=== PATIENT | male | born 1960 | race Caucasian/White ===

== ENCOUNTER 2020-11-03 04:58 | Observation (INO) | payer BC ==
--- NOTE | 2020-11-03 05:21 | ED ---
Chest Pain HPI - General Chief Complaint: Chest Pain Stated Complaint: Chest Pain Time Seen by Provider: 11/03/20 05:02 Source: patient, EMS Mode of arrival: EMS Limitations: no limitations - History of Present Illness Initial Comments: This patient is 60-year-old man who woke from sleep tonight with substernal chest pain. The pain lasted probably about 15 minutes and has resolved. He did take aspirin. The patient has been having episodes like this going back for about a week now. Initially the episodes were exertional in nature. He states now he is having them sometimes at rest. Occasionally there is some nausea accompanying. The pains will last from 5-15 or 20 minutes. He had seen his doctor and he also was then scheduled with cardiology in about 2 weeks from now. MD Complaint: chest pain Onset/Timin -: hour(s) Onset: awoke with symptoms Pain Location: substernal Pain Radiation: none Severity: moderate Quality: sharp Consistency: intermittent Improves With: nothing Worsens With: nothing Anginal Symptoms: nausea Treatments Prior to Arrival: aspirin - Related Data Allergies Allergy/AdvReac Type Severity Reaction Status Date / Time No Known Allergies Allergy Verified 11/03/20 05:07 Review of Systems ROS Statement: Those systems with pertinent positive or pertinent negative responses have been documented in the HPI. ROS Other: All systems not noted in ROS Statement are negative. Constitutional: Denies: fever, chills Respiratory: Denies: cough, dyspnea Cardiovascular: Reports: chest pain. Denies: palpitations, orthopnea, edema, syncope Gastrointestinal: Reports: nausea. Denies: abdominal pain, vomiting, diarrhea, melena, hematochezia Genitourinary: Denies: dysuria, hematuria Musculoskeletal: Denies: back pain Skin: Denies: rash Neurological: Denies: headache, weakness, numbness EKG Findings - EKG Results: EKG: interpreted by MK MEADE, sinus rhythm (Rate 66 bpm), normal axis, normal QRS, normal ST/T, no acute changes Past Medical History Past Medical History: Hypertension History of Any Multi-Drug Resistant Organisms: None Reported Past Psychological History: No Psychological Hx Reported Smoking Status: Never smoker Past Alcohol Use History: Occasional Past Drug Use History: None Reported General Exam Limitations: no limitations General appearance: alert, in no apparent distress Head exam: Present: atraumatic, normocephalic Eye exam: Present: normal appearance. Absent: scleral icterus, conjunctival injection Neck exam: Present: normal inspection Respiratory exam: Present: normal lung sounds bilaterally. Absent: respiratory distress, wheezes, rales, rhonchi, stridor Cardiovascular Exam: Present: regular rate, normal rhythm, normal heart sounds. Absent: systolic murmur, diastolic murmur, rubs, gallop GI/Abdominal exam: Present: soft. Absent: distended, tenderness, guarding, rebound, rigid, mass, pulsatile mass, hernia Extremities exam: Present: normal inspection, normal capillary refill. Absent: pedal edema, calf tenderness Back exam: Present: normal inspection. Absent: CVA tenderness (R), CVA tenderness (L) Neurological exam: Present: alert Skin exam: Present: warm, dry, intact, normal color. Absent: rash Course Vital Signs 11/03/20 11/03/20 11/03/20 05:01 05:08 05:17 Temperature 97.7 F Pulse Rate 62 71 Pulse Rate [ 60 Manufacturing Lead ] Respiratory 16 16 Rate Blood Pressure 142/101 O2 Sat by Pulse 95 97 Oximetry 11/03/20 06:00 Temperature Pulse Rate 58 L Pulse Rate [ Manufacturing Lead ] Respiratory 16 Rate Blood Pressure 127/84 O2 Sat by Pulse 98 Oximetry - Reevaluation(s) Reevaluation #1: 11/03/20 06:46 Case is discussed with Dr. Limon, and they will see the patient when they arrive shortly this am Disposition Clinical Impression: Acute coronary syndrome Disposition: ADMITTED IP TO THIS [facility] Condition: Stable
[2020-11-03 05:39] LABS: Basophils # (A) 0.1 k/uL (0-0.2); Basophils % (A) 1 %; Eosinophils # (A) 0.2 k/uL (0-0.7); Eosinophils % (A) 3 %; HCT 45.4 % (39.0-53.0); HGB 15.6 gm/dL (13.0-17.5); Lymphocytes % (A) 19 %; MCH 31.1 pg (25.0-35.0); MCHC 34.3 g/dL (31.0-37.0); MCV 90.7 fL (80.0-100.0); Mean Platelet Volume 7.2; Monocytes # (A) 0.3 k/uL (0-1.0); Monocytes % (A) 6 %; Neutrophils # (A) 3.5 k/uL (1.3-7.7); Neutrophils % (A) 69 %; Platelet Count 171 k/uL (150-450); RBC 5.01 m/uL (4.30-5.90); RDW 11.9 % (11.5-15.5); WBC 5.1 k/uL (3.8-10.6)
[2020-11-03 05:47] LABS: Partial Thromboplastin Time 24.8 sec (22.0-30.0); Prothrombin Time 10.3 sec (9.0-12.0)
[2020-11-03 05:55] LABS: ALT 31 U/L (4-49); AST 36 U/L (17-59); African American GFR (CKD) >90 (>60 ml/min/1.73 sqM); Albumin 3.8 g/dL (3.5-5.0); Alkaline Phosphatase 57 U/L (38-126); Anion Gap 7 mmol/L; Blood Urea Nitrogen 20 mg/dL (9-20); Calcium 9.1 mg/dL (8.4-10.2); Carbon Dioxide 25 mmol/L (22-30); Chloride 107 mmol/L (98-107); Glucose 93 mg/dL (74-99); Non-African American GFR(CKD) 82 (>60 ml/min/1.73 sqM); Potassium 4.2 mmol/L (3.5-5.1); Sodium 139 mmol/L (137-145); Total Bilirubin 0.5 mg/dL (0.2-1.3); Total Protein 6.4 g/dL (6.3-8.2)
[2020-11-03] MEDS ORDERED: HEPARIN SODIUM 1,000 UN/ML (10ML VL) IV ONE (06:30)
[2020-11-03] MEDS ORDERED: HEPARIN SOD,PORK IN 0.45% NACL 25,000 UNIT in 0.45% NACL 1 250ML.BAG IV SCH (06:30)
[2020-11-03] MEDS ORDERED: MORPHINE SULFATE 4 MG/ML SYRINGE IV PRN (06:30)
[2020-11-03] MEDS ORDERED: NITROGLYCERIN SL TABS 0.4 MG TAB SUBLINGUAL PRN ×3 (06:30→11:46)
[2020-11-03] MEDS ORDERED: NITROGLYCERIN OINT 1 INCH/GM PACKET TOPICAL STA (06:44)
--- NOTE | 2020-11-03 06:47 | XR ---
EXAM: XR Chest, 2 Views CLINICAL HISTORY: ITS.REASON XR Reason: Chest Pain TECHNIQUE: Frontal and lateral views of the chest. COMPARISON: No relevant prior studies available. FINDINGS: Lungs: Unremarkable. No consolidation. Pleural space: Unremarkable. No pneumothorax. Heart: Unremarkable. No cardiomegaly. Mediastinum: Unremarkable. Bones/joints: Unremarkable. IMPRESSION: No acute pulmonary process.
[2020-11-03] MEDS: ASPIRIN 81 MG PO SCH (08:40)
[2020-11-03] MEDS: METOPROLOL TARTRATE 25 MG TAB PO SCH ×2 (08:40→20:38)
[2020-11-03] MEDS ORDERED: ATORVASTATIN 80 MG TAB PO STA (09:32)
[2020-11-03] MEDS ORDERED: ALPRAZolam 0.5 MG TAB PO PRN (09:32)
[2020-11-03] MEDS ORDERED: ASPIRIN 325 MG TAB PO STA (09:32)
[2020-11-03] MEDS ORDERED: SODIUM CHLORIDE 0.9% 1,000 ML in EMPTY BAG 1 BAG IV ONE (09:32)
[2020-11-03] MEDS ORDERED: ALPRAZolam 0.25 MG TAB PO PRN (09:32)
[2020-11-03] MEDS ORDERED: VERAPAMIL 2.5 MG/ML 2 ML AMP ONE (10:12)
[2020-11-03] MEDS ORDERED: LIDOCAINE 1% INJ 10MG/ML (20 ML MDV) ONE (10:12)
[2020-11-03] MEDS ORDERED: IV FLUID CONTINUATION 400 ML IV ONE (10:35)
[2020-11-03] MEDS ORDERED: MIDAZOLAM 2 MG/2 ML VIAL IVP ONE ×2 (10:54→10:59)
--- NOTE | 2020-11-03 10:55 | P.CRDCN ---
History of Present Illness Consult date: 11/03/20 History of present illness: HISTORY OF PRESENT ILLNESS: This is a 60-year-old male with a past medical history significant for hypertension. Patient does not follow with a occupational therapist's assistant. We have been asked to see the patient in consultation for elevated troponins. Patient examined at the bedside. Patient states he has been having intermittent chest pain over the past week or 2. He was evaluated by his primary care physician and had an appointment to [facility] at the end of the month for further evaluation. Patient states over the last couple days he has been having continued chest pain even at rest. He denies any shortness of breath. He reports mild nausea when these episodes of chest pain occur. He denies any radiation of the pain. He states the pain feels like a squeezing sensation and is localized to the middle of his chest. Patient was found to have elevated troponin of 0.2. He was started on IV heparin drip. At the time of examination, the patient denies any chest pain or pressure. EKG reveals sinus mechanism with flattened T waves in aVL and T-wave inversion in V2 Chest xray negative for acute process Laboratory data: WBC 5.1. Hemoglobin 15.6. Platelet count 171. Sodium 139. Potassium 4.2. BUN 20. Creatinine 0.99. Magnesium 2.0. Troponin 0.205. 0.252. Current home cardiac medications include lisinopril 10 mg daily REVIEW OF SYSTEMS: At the time of my exam: CONSTITUTIONAL: Denies fever or chills. HEENT: Denies blurred vision, vision changes, or eye pain. Denies hemoptysis CARDIOVASCULAR: Denies chest pain. Denies orthopnea. Denies PND. Denies palpit ations RESPIRATORY: Denies shortness of breath. GASTROINTESTINAL: Denies abdominal pain. Denies nausea or vomiting. HEMATOLOGIC: Denies bleeding disorders. GENITOURINARY: Denies any blood in urine. SKIN: Denies pruitis. Denies rash. PHYSICAL EXAM: VITAL SIGNS: Reviewed. GENERAL: Well-developed in no acute distress. HEENT: Head is normocephalic. Pupils are equal, round. Sclerae anicteric. Mucous membranes of the mouth are moist. Neck supple. No JVD or thyromegaly LUNGS: Respirations even and unlabored. Lungs essentially clear to auscultation bilaterally. HEART: Regular rate and rhythm. S1 and S2 heard. ABDOMEN: Soft. Nondistended. Nontender. EXTREMITIES: Normal range of motion. No clubbing or cyanosis. Peripheral pulses intact. No lower extremity edema NEUROLOGIC: Awake and alert. Oriented x 3. ASSESSMENT: Non-STEMI Hypertension PLAN: Continue IV heparin Begin metoprolol 25 mg twice a day and aspirin 81 mg daily Add Lipitor Obtain lipid panel Resume home dose of lisinopril Obtain 2-D echo to assess cardiac structure and function Patient to undergo cardiac catheterization today with Dr. Maloney Further recommendations pending patient's course Nurse practitioner note has been reviewed by physician. Signing provider agrees with the documented findings, assessment, and plan of care. Past Medical History Past Medical History: Hypertension Additional Past Medical History / Comment(s): bowel obstruction History of Any Multi-Drug Resistant Organisms: None Reported Additional Past Surgical History / Comment(s): surgery for bowel obstruction Past Psychological History: No Psychological Hx Reported Smoking Status: Never smoker Past Alcohol Use History: Occasional Past Drug Use History: None Reported - Past Family History Father Family Medical History: Coronary Artery Disease (CAD) Additional Family Medical History / Comment(s): valve replacement Mother Family Medical History: Congestive Heart Failure (CHF), Coronary Artery Disease (CAD) Medications and Allergies Home Medications Medication Instructions Recorded Confirmed Type Aspirin 325 mg PO ONCE PRN 11/03/20 11/03/20 History Glucosamine Sulfate 500 mg PO HS 11/03/20 11/03/20 History lisinopriL 10 mg PO HS 11/03/20 11/03/20 History Allergies Allergy/AdvReac Type Severity Reaction Status Date / Time No Known Allergies Allergy Verified 11/03/20 10:19 Physical Exam Vitals: Vital Signs Temp Pulse Pulse Resp BP BP Pulse Ox 11/03/20 08:21 98.1 F 61 18 123/81 97 11/03/20 08:00 18 11/03/20 06:52 56 L 16 106/77 97 11/03/20 06:00 58 L 16 127/84 98 11/03/20 05:17 71 16 97 11/03/20 05:08 60 11/03/20 05:01 97.7 F 62 16 142/101 95 Intake and Output 11/02/20 11/03/20 11/03/20 22:59 06:59 14:59 Intake Total 0 Balance 0 Intake: Oral 0 Other: Weight 113.398 kg 113.398 kg Results 11/03/20 05:31 11/03/20 05:31 Cardiac Enzymes 11/03/20 11/03/20 11/03/20 Range/Units 05:31 05:31 07:48 AST 36 (17-59) U/L Troponin I 0.205 H* 0.252 H* (0.000-0.034) ng/mL Coagulation 11/03/20 Range/Units 05:31 PT 10.3 (9.0-12.0) sec APTT 24.8 (22.0-30.0) sec CBC 11/03/20 Range/Units 05:31 WBC 5.1 (3.8-10.6) k/uL RBC 5.01 (4.30-5.90) m/uL Hgb 15.6 (13.0-17.5) gm/dL Hct 45.4 (39.0-53.0) % Plt Count 171 (150-450) k/uL Comprehensive Metabolic Panel 11/03/20 Range/Units 05:31 Sodium 139 (137-145) mmol/L Potassium 4.2 (3.5-5.1) mmol/L Chloride 107 (98-107) mmol/L Carbon Dioxide 25 (22-30) mmol/L BUN 20 (9-20) mg/dL Creatinine 0.99 (0.66-1.25) mg/dL Glucose 93 (74-99) mg/dL Calcium 9.1 (8.4-10.2) mg/dL AST 36 (17-59) U/L ALT 31 (4-49) U/L Alkaline Phosphatase 57 (38-126) U/L Total Protein 6.4 (6.3-8.2) g/dL Albumin 3.8 (3.5-5.0) g/dL Current Medications Generic Name Dose Route Start Last Admin Trade Name Freq PRN Reason Stop Dose Admin Alprazolam 0.25 mg 11/03/20 09:32 Alprazolam 0.25 Mg Tab PO Q6HR PRN Mild Anxiety Alprazolam 0.5 mg 11/03/20 09:32 Alprazolam 0.5 Mg Tab PO Q6HR PRN Moderate Anxiety Aspirin 81 mg 11/03/20 07:30 11/03/20 08:40 Aspirin 81 Mg PO 81 mg DAILY MARJAN Administration Heparin Sodium/Sodium Chloride 250 mls @ 13.608 mls/hr 11/03/20 06:30 11/03/20 06:50 25,000 unit/ Sodium Chloride IV 12 units/kg/hr .[id number] MARJAN 13.608 mls/hr Administration Protocol 12 UNITS/KG/HR Sodium Chloride 1,000 ml/ IV 1,000 mls @ 113.398 mls/hr 11/03/20 09:32 11/03/20 10:11 Solution IV 11/03/20 18:21 113.398 mls/hr .Q8H50M ONE Administration 1 ML/KG/HR Heparin Sodium (Porcine) 10, 1,001 mls @ 999 mls/hr 11/04/20 07:00 000 unit/ Sodium Chloride IRRIGATION 11/04/20 23:00 ONCE PRN INTRA-OP Heparin Sodium (Porcine) 2,500 250.5 mls @ 250 mls/hr 11/04/20 07:00 unit/ Sodium Chloride IRRIGATION 11/04/20 23:00 ONCE PRN INTRA-OP Metoprolol Tartrate 25 mg 11/03/20 09:00 11/03/20 08:40 Metoprolol Tartrate 25 Mg Tab PO 25 mg BID MARJAN Administration Morphine Sulfate 4 mg 11/03/20 06:30 Morphine Sulfate 4 Mg/Ml Syringe IV Q5M PRN Chest Pain Nitroglycerin 0.4 mg 11/03/20 06:30 Nitroglycerin Sl Tabs 0.4 Mg Tab SUBLINGUAL Q5M PRN Chest Pain Nitroglycerin 0.4 mg 11/03/20 09:32 Nitroglycerin Sl Tabs 0.4 Mg Tab SUBLINGUAL Q5M PRN Chest Pain Intake and Output 11/02/20 11/03/20 11/03/20 22:59 06:59 14:59 Intake Total 0 Balance 0 Intake: Oral 0 Other: Weight 113.398 kg 113.398 kg Patient Weight 11/04/20 06:59 Weight 113.398 kg 11/03/20 05:31 11/03/20 05:31
[2020-11-03] MEDS ORDERED: LIDOCAINE 1% INJ 10MG/ML (20 ML MDV) SQ ONE (10:56)
[2020-11-03] MEDS: VERAPAMIL SYRINGE (5 MG/10 ML) INTRAARTER ONE ×2 (10:58→11:30)
[2020-11-03] MEDS ORDERED: HEPARIN SODIUM 1,000 UN/ML (10ML VL) ONE (10:58)
[2020-11-03] MEDS ORDERED: HEPARIN SODIUM 1,000 UN/ML (10ML VL) IVP ONE (10:59)
[2020-11-03] MEDS ORDERED: PRASUGREL 10 MG TAB ONE (11:03)
[2020-11-03] MEDS ORDERED: PRASUGREL 10 MG TAB PO ONE (11:11)
[2020-11-03] MEDS: NITROGLYCERIN 1000MCG/10ML SYRINGE INTRACORON ONE ×2 (11:17→11:26)
[2020-11-03] MEDS ORDERED: niCARdipine 25 MG/10 ML VIAL ONE (11:24)
[2020-11-03] MEDS ORDERED: niCARdipine Syringe (1,000 mcg/10 mL) INTRACORON ONE (11:26)
[2020-11-03] MEDS ORDERED: fentaNYL (PF) 50 MCG/ML 2 ML AMP ONE (11:30)
[2020-11-03] MEDS ORDERED: IOPAMIDOL-370 125ML BTL INJ ONE (11:30)
[2020-11-03] MEDS ORDERED: fentaNYL (PF) 50 MCG/ML 2 ML AMP IVP ONE (11:32)
[2020-11-03] MEDS ORDERED: ATROPINE SULFATE 0.1 MG/ML 10ML SYRINGE IV PRN (11:46)
[2020-11-03] MEDS ORDERED: MAG HYDROX/AL HYDROX/SIMETH 30 ML CUP PO PRN (11:46)
[2020-11-03] MEDS ORDERED: RX INFO: IV CONTRAST WAS GIVEN 1 EACH MISC MISCELLANE PRN (11:46)
[2020-11-03] MEDS ORDERED: ZOLPIDEM 5 MG TAB PO PRN (11:46)
[2020-11-03] MEDS ORDERED: SODIUM CHLORIDE 0.9% 1,000 ML IV SCH (12:00)
--- NOTE | 2020-11-03 12:55 | P.HPIM ---
History of Present Illness Patient was a 60-year-old male came in with complaints of chest pain which had which is intermittent has been going on for about a week to 10 days. Patient was having continued chest pain even at rest last couple days because of which patient came to the hospital. Patient had significant T-wave changes in lead V2 and mildly elevated troponin because of which patient was taken to Water Resource Engineer and patient is found to have complete occlusion of LAD and patient had stent to LAD. Patient is chest pain-free at this time. Patient denied any fever chills nausea vomiting shortness of breath. Review of Systems REVIEW OF SYSTEMS: CONSTITUTIONAL: No fever, no malaise, no fatigue. HEENT: No recent visual problems or hearing problems. Denied any sore throat. CARDIOVASCULAR: No orthopnea, PND, no palpitations, no syncope. PULMONARY: No shortness of breath, no cough, no hemoptysis. GASTROINTESTINAL: No diarrhea, no nausea, no vomiting, no abdominal pain. NEUROLOGICAL: No headaches, no weakness, no numbness. HEMATOLOGICAL: Denies any bleeding or petechiae. GENITOURINARY: Denies any burning micturition, frequency, or urgency. MUSCULOSKELETAL/RHEUMATOLOGICAL: Denies any joint pain, swelling, or any muscle pain. ENDOCRINE: Denies any polyuria or polydipsia. The rest of the 14-point review of systems is negative. Past Medical History Past Medical History: Hypertension Additional Past Medical History / Comment(s): bowel obstruction History of Any Multi-Drug Resistant Organisms: None Reported Additional Past Surgical History / Comment(s): surgery for bowel obstruction Past Psychological History: No Psychological Hx Reported Smoking Status: Never smoker Past Alcohol Use History: Occasional Past Drug Use History: None Reported - Past Family History Father Family Medical History: Coronary Artery Disease (CAD) Additional Family Medical History / Comment(s): valve replacement Mother Family Medical History: Congestive Heart Failure (CHF), Coronary Artery Disease (CAD) Medications and Allergies Home Medications Medication Instructions Recorded Confirmed Type Aspirin 325 mg PO ONCE PRN 11/03/20 11/03/20 History Glucosamine Sulfate 500 mg PO HS 11/03/20 11/03/20 History lisinopriL 10 mg PO HS 11/03/20 11/03/20 History Allergies Allergy/AdvReac Type Severity Reaction Status Date / Time No Known Allergies Allergy Verified 11/03/20 10:19 Physical Exam Vitals: Vital Signs Temp Pulse Pulse Resp BP BP Pulse Ox 11/03/20 12:01 59 L 16 133/80 98 11/03/20 08:21 98.1 F 61 18 123/81 97 11/03/20 08:00 18 11/03/20 06:52 56 L 16 106/77 97 11/03/20 06:00 58 L 16 127/84 98 11/03/20 05:17 71 16 97 11/03/20 05:08 60 11/03/20 05:01 97.7 F 62 16 142/101 95 Intake and Output 11/02/20 11/03/20 11/03/20 22:59 06:59 14:59 Intake Total 175 Balance 175 Intake: IV 175 Oral 0 Other: Weight 113.398 kg 113.398 kg PHYSICAL EXAMINATION: GENERAL: The patient is alert and oriented x3, not in any acute distress. Well developed, well nourished. HEENT: Pupils are round and equally reacting to light. EOMI. No scleral icterus. No conjunctival pallor. Normocephalic, atraumatic. No pharyngeal erythema. No thyromegaly. CARDIOVASCULAR: S1 and S2 present. No murmurs, rubs, or gallops. PULMONARY: Chest is clear to auscultation, no wheezing or crackles. ABDOMEN: Soft, nontender, nondistended, normoactive bowel sounds. No palpable organomegaly. MUSCULOSKELETAL: No joint swelling or deformity. EXTREMITIES: No cyanosis, clubbing, or pedal edema. NEUROLOGICAL: Gross neurological examination did not reveal any focal deficits. SKIN: No rashes. Results CBC & Chem 7: 11/03/20 05:31 11/03/20 05:31 Labs: Abnormal Lab Results - Last 24 Hours (Table) 11/03/20 11/03/20 11/03/20 Range/Units 05:31 07:48 10:12 Troponin I 0.205 H* 0.252 H* 0.261 H* (0.000-0.034) ng/mL Thrombosis Risk Factor Assmnt - Choose All That Apply Any of the Below Risk Factors Present?: No Other Risk Factors: No Other congenital or acquired thrombophilia - If yes, enter type in comment: No Thrombosis Risk Factor Assessment Level: Very Low Risk Assessment and Plan Plan: -Acute non-ST elevation myocardial infarction patient is status post cardiac catheterization patient is presently under antiplatelet therapy statin beta haris and lisinopril echocardiac was obtained as well as of which are pending. -Hypertension
--- NOTE | 2020-11-03 14:03 | ECHOF ---
Referral Reason:LV function, CP, elevated troponin MEASUREMENTS -------- HEIGHT: 182.9 cm WEIGHT: 113.4 kg BP: RVIDd: 2.8 cm (< 3.3) IVSd: 0.9 cm (0.6 - 1.1) LVIDd: 5.3 cm (3.9 - 5.3) LVPWd: 0.9 cm (0.6 - 1.1) IVSs: 1.4 cm LVIDs: 3.1 cm LVPWs: 1.5 cm LA Diam: 3.6 cm (2.7 - 3.8) Ao Diam: 2.7 cm (2.0 - 3.7) AV Cusp: 1.9 cm (1.5 - 2.6) MV EXCURSION: 22.907 mm (> 18.000) MV EF SLOPE: 107 mm/s (70 - 150) EPSS: 0.2 cm MV E Jovani: 0.76 m/s MV DecT: 208 ms MV A Jovani: 0.85 m/s MV E/A Ratio: 0.89 RAP: 5.00 mmHg RVSP: 17.74 mmHg FINDINGS -------- Sinus rhythm. This was a techncally difficult study with suboptimal views, , Definity utilized for enhancement of i mages. LV size, wall thickness and systolic function are normal, with an EF greater than 55%. The left jose tricular size is normal. The right ventricle is normal in size. Normal LA size by volume 22+/-6 ml/m2. The right atrial size is normal. .5ml of Lumason was utilized for enhancement of images. The aortic valve is trileaflet, and appears structurally normal. No aortic stenosis or regurgitation. Mild mitral regurgitation is present. Mild tricuspid regurgitation present. Right ventricular systolic pressure is normal at < 35 mmHg. There is no pulmonic regurgitation present. There is no pericardial effusion. CONCLUSIONS -------- 1. This was a techncally difficult study with suboptimal views, , Definity utilized for enhancement o f images. 2. LV size, wall thickness and systolic function are normal, with an EF greater than 55%. 3. The left ventricular size is normal. 4. The right ventricle is normal in size. 5. Normal LA size by volume 22+/-6 ml/m2. 6. The right atrial size is normal. 7. xx ml of Lumason was utilized for enhancement of images. 8. The aortic valve is trileaflet, and appears structurally normal. No aortic stenosis or regurgitati on. 9. Mild mitral regurgitation is present. 10. Mild tricuspid regurgitation present. ELEVATOR OPERATOR: Jane Whitley RDCS
[2020-11-03 15:03] VITALS: BMI 33.9
--- NOTE | 2020-11-03 15:14 | CC ---
CARDIAC CATHETERIZATION REPORT DATE OF SERVICE: November 03, 2020. PERFORMING PHYSICIAN: Richard Maloney MD. PROCEDURE PERFORMED: 1. Selective right and left coronary angiogram. 2. Left heart catheterization. 3. Successful stenting of the mid left anterior descending artery using a 3.25 x 18 mm Xience drug-eluting stent which was post-dilated using 3.5 mm NC balloon with an excellent angiographic result and reduction of stenosis from 99% to 0%. INDICATION: This is a 60-year-old gentleman with no prior medical history, who presented to the hospital with chest discomfort and mildly abnormal troponin. The EKG showed nonspecific ST and T-wave abnormalities. APPROACH: Right radial artery. COMPLICATION: None. LEVEL OF SEDATION: Moderate with sedation length of 30 minutes. PROCEDURE DESCRIPTION: After obtaining informed consent, the patient was brought to cardiac medical lab tech instructor. The right radial artery was cannulated using micropuncture technique and a micropuncture wire passed easily. Then I placed a 6-Zimbabwean sheath. I gave the patient anticoagulation with heparin, where he received 10 thousands units of Heparin I IV with ACT monitoring. Selective right and left coronary angiogram performed with JR4 and JL3.5 catheters. Left heart catheterization was performed using 5-Zimbabwean pigtail catheter and then I did intervene on the LAD. Please see a separate paragraph for that. SELECTIVE CORONARY ANGIOGRAM: 1. The RCA is a medium caliber vessel and nondominant vessel and appeared to be angiographically normal. 2. The left main is angiographically normal. It bifurcates into LCX and ramus intermedius and left anterior descending artery. 3. The LCX is a large caliber vessel. It is a dominant vessel. The LCX is angiographically normal. It distally bifurcates into PDA and PLV branches both appeared to be angiographically normal. 4. The ramus intermedius is a large caliber vessel and seems to be angiographically normal. 5. The LAD: The proximal LAD appeared to be angiographically normal. The mid LAD by the bifurcation of a medium-sized diagonal branch appeared to have a tight lesion in the range of 99.9%. The LAD distally appeared to be angiographically normal. HEMODYNAMICS: The LVEDP was 4 mmHg without significant gradient across aortic valve. PCI OF THE LAD: Anticoagulation was achieved using heparin. I did engage the left main using JL3.5 with a short tip. I did wire the LAD using a Whisper wire. After that, I did PTCA ballooning of the LAD using 3.0 x 12 mm balloon before I deployed 3.25 x 18 mm Xience drug-eluting stent where the stent was positioned under fluoroscopy guidance and deployed under 14 atmospheres for 20 seconds. Initially I postdilated using 3.5 mm NC balloon and the following angiogram showed excellent angiographic results and the procedure was completed without any complication. HEMODYNAMIC: The LVEDP was about 4 mmHg without significant gradient across the aortic valve. CONCLUSION: 1. Acute [id number] myocardial infarction. 2. Critical disease involving the LAD by the bifurcation of a medium-sized diagonal branch. 3. Successful stenting of the LAD as described above. POSTPROCEDURE MANAGEMENT: 1. Dual anti-platelet therapy. 2. Aggressive cholesterol control. 3. Risk factor modifications follow up with the patient. JEREMIAH / MAYITO: [id number] /
--- NOTE | 2020-11-03 15:14 | LTR ---
DATE OF SERVICE: 11/03/[address] Gonzalez: Mr. Jona Hong presented to the hospital with chest discomfort and ruled in for acute coronary syndrome. He underwent a heart catheterization and was found to have a plaque rupture in the mid left anterior descending artery. He underwent successful stenting of the LAD with good angiographic results. Thank you for allowing us to participate in his care. Sincerely, JEREMIAH / MAYITO: [id number] /
[2020-11-03] MEDS ORDERED: ATORVASTATIN 80 MG TAB PO SCH (21:00)
[2020-11-03] MEDS ORDERED: lisinopriL 10 MG TAB PO SCH (21:00)
[2020-11-04] MEDS ORDERED: HEPARIN SODIUM,PORCINE 2,500 UNIT in SODIUM CHLORIDE 0.9% 250 ML IRRIGATION PRN (07:00)
[2020-11-04] MEDS ORDERED: HEPARIN SODIUM,PORCINE 10,000 UNIT in SODIUM CHLORIDE 0.9% 1,000 ML IRRIGATION PRN (07:00)
[2020-11-04 08:50] VITALS: RESP 17; TEMP 98.4
--- NOTE | 2020-11-04 08:59 | P.PN ---
Subjective Progress Note Date: 11/04/20 HISTORY OF PRESENT ILLNESS: This is a 60-year-old male with a past medical history significant for hypertension. 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 We have been asked to see the patient in consultation for elevated troponins. Patient examined at the bedside. Patient states he has been having intermittent chest pain over the past week or 2. He was evaluated by his primary care physician and had an appointment to [facility] at the end of the month for further evaluation. Patient states over the last couple days he has been having continued chest pain even at rest. He denies any shortness of breath. He reports mild nausea when these episodes of chest pain occur. He denies any radiation of the pain. He states the pain feels like a squeezing sensation and is localized to the middle of his chest. Patient was found to have elevated troponin of 0.2. He was started on IV heparin drip. At the time of examination, the patient denies any chest pain or pressure. EKG reveals sinus mechanism with flattened T waves in aVL and T-wave inversion in V2 Chest xray negative for acute process Laboratory data: WBC 5.1. Hemoglobin 15.6. Platelet count 171. Sodium 139. Potassium 4.2. BUN 20. Creatinine 0.99. Magnesium 2.0. Troponin 0.205. 0.252. Current home cardiac medications include lisinopril 10 mg daily 11/04/2020 Patient is s/p cardiac cath with Dr. Maloney with PCI to the LAD. Patient examined this morning at the bedside. Patient is ambulating independently in his room. He denies chest pain or pressure. He denies shortness of breath. Vital signs have been stable. Echocardiogram completed revealing ejection fraction greater than 55%, mild mitral regurgitation, and mild tricuspid regurgitation. PHYSICAL EXAM: VITAL SIGNS: Reviewed. GENERAL: Well-developed in no acute distress. HEENT: Head is normocephalic. Pupils are equal, round. Sclerae anicteric. Mucous membranes of the mouth are moist. Neck supple. No JVD or thyromegaly LUNGS: Respirations even and unlabored. Lungs essentially clear to auscultation bilaterally. HEART: Regular rate and rhythm. S1 and S2 heard. ABDOMEN: Soft. Nondistended. Nontender. EXTREMITIES: Normal range of motion. No clubbing or cyanosis. Peripheral pulses intact. No lower extremity edema. Right radial cath site with Pulse Present. NEUROLOGIC: Awake and alert. Oriented x 3. ASSESSMENT: Non-STEMI, s/p PCI to LAD Hypertension PLAN: Continue dual antiplatelet therapy with aspirin and Effient. Case management consulted to verify coverage of Effient. Continue additional cardiac medications including atorvastatin, metoprolol, and lisinopril Increase activity as tolerated Further recommendations pending patient's course Patient to follow-up on an outpatient basis with Dr. Maloney Nurse practitioner note has been reviewed by physician. Signing provider agrees with the documented findings, assessment, and plan of care. Objective - Vital Signs Vital signs: Vital Signs Temp 98.4 F 11/04/20 08:00 Pulse 66 11/04/20 08:00 Resp 17 11/04/20 08:00 BP 104/65 11/04/20 08:00 Pulse Ox 97 11/04/20 08:00 Intake & Output 11/03/20 11/04/20 11/04/20 18:59 06:59 18:59 Intake Total 775 Balance 775 Weight 113.398 kg 111.9 kg Intake: IV 175 Oral 600 Other: Voiding Method Toilet Toilet # Voids 1 1 # Bowel Movements 1 - Labs CBC & Chem 7: 11/03/20 05:31 11/03/20 05:31 Labs: Abnormal Lab Results - Last 24 Hours (Table) 11/03/20 11/03/20 Range/Units 07:48 10:12 Troponin I 0.252 H* 0.261 H* (0.000-0.034) ng/mL
[2020-11-04] MEDS ORDERED: PRASUGREL 10 MG TAB PO SCH (09:00)
[2020-11-04] MEDS ORDERED: ASPIRIN 325 MG TAB PO SCH (09:00)
[2020-11-04] MEDS: METOPROLOL TARTRATE 25 MG TAB PO SCH (09:00)
[2020-11-04] MEDS: ASPIRIN 81 MG PO SCH (09:00)
[2020-11-04 09:15] LABS: Potassium 4.8 mmol/L (3.5-5.1)
--- NOTE | 2020-11-04 11:14 | P.DS ---
Providers Date of admission: 11/03/20 06:30 Attending physician: Afshan Smalls Consults: 11/03/20 06:30 Consult Physician Urgent Consulting Provider: Skyler Limon Consult Reason/Comments: Acute coronary syndrome. Do you want consulting provider notified?: Already Contacted 11/03/20 11:46 Consult Physician Routine Consulting Provider: [facility] Consult Reason/Comments: Post Interventional patient Do you want consulting provider notified?: Already Contacted Primary care physician: [facility]on [facility] Course: Patient was a 60-year-old male came in with complaints of chest pain which had which is intermittent has been going on for about a week to 10 days. Patient was having continued chest pain even at rest last couple days because of which patient came to the hospital. Patient had significant T-wave changes in lead V2 and mildly elevated troponin because of which patient was taken to [facility] and patient is found to have complete occlusion of LAD and patient had stent to LAD. Patient is chest pain-free at this time. Patient denied any fever chills nausea vomiting shortness of breath. 11/04/2020 and patient is clinically doing well no chest pain. Patient echo cardiac exam showed normal ejection fraction will be discharged today patient blood pressure is significantly low because of which I'm cutting down lisinopril dose to 5 mg. PHYSICAL EXAMINATION: GENERAL: The patient is alert and oriented x3, not in any acute distress. Well developed, well nourished. HEENT: Pupils are round and equally reacting to light. EOMI. No scleral icterus. No conjunctival pallor. Normocephalic, atraumatic. No pharyngeal erythema. No thyromegaly. CARDIOVASCULAR: S1 and S2 present. No murmurs, rubs, or gallops. PULMONARY: Chest is clear to auscultation, no wheezing or crackles. ABDOMEN: Soft, nontender, nondistended, normoactive bowel sounds. No palpable organomegaly. MUSCULOSKELETAL: No joint swelling or deformity. EXTREMITIES: No cyanosis, clubbing, or pedal edema. NEUROLOGICAL: Gross neurological examination did not reveal any focal deficits. SKIN: No rashes. -Acute non-ST elevation myocardial infarction status post cardiac catheterization and stenting to LAD and patient is being discharged on dual antiplatelet therapy statins beta haris and lisinopril -Hypertension Patient Condition at Discharge: Stable Plan - Discharge Summary Discharge Rx Participant: No New Discharge Prescriptions: New Aspirin 81 mg PO DAILY #90 chew Metoprolol Tartrate [Lopressor] 25 mg PO BID #180 tab Nitroglycerin Sl Tabs [Nitrostat] 0.4 mg SUBLINGUAL Q5M PRN #1 bottle PRN Reason: Chest Pain Prasugrel [Effient] 10 mg PO DAILY #90 tab Atorvastatin [Lipitor] 80 mg PO HS #90 tab Changed lisinopriL 5 mg PO HS #0 Discontinued Aspirin 325 mg PO ONCE PRN PRN Reason: Chest Pain No Action Glucosamine Sulfate 500 mg PO HS Discharge Medication List Glucosamine Sulfate 500 mg PO HS 11/03/20 [History] Aspirin 81 mg PO DAILY #90 chew 11/04/20 [Rx] Atorvastatin [Lipitor] 80 mg PO HS #90 tab 11/04/20 [Rx] Metoprolol Tartrate [Lopressor] 25 mg PO BID #180 tab 11/04/20 [Rx] Nitroglycerin Sl Tabs [Nitrostat] 0.4 mg SUBLINGUAL Q5M PRN #1 bottle 11/04/20 [Rx] Prasugrel [Effient] 10 mg PO DAILY #90 tab 11/04/20 [Rx] lisinopriL 5 mg PO HS #0 11/04/20 [Rx] Follow up Appointment(s)/Referral(s): Richard Maloney MD [STAFF PHYSICIAN] - 1 Week Bryon Gonzalez DO [Primary Care Provider] - 1-2 days
[2020-11-04 11:30] VITALS: BP 113/74; PULSE 61
[2020-11-04 12:36] LABS: LDL Cholesterol,Calculated 77.2 mg/dL (0.0-131.0); VLDL Calculation 18.8 mg/dL (5.00-40.00)
[2020-11-05] MEDS ORDERED: PRASUGREL 10 MG TAB PO SCH (09:00)
== END 2020-11-04 14:03 | disposition home or self-care (01) ==
LOC: EC 04:58 → 3SCARD 06:30
PROVIDERS: ADMIT Hospitalist; ATTEND Hospitalist
DX: I21.4 Non-ST elevation (NSTEMI) myocardial infarction (principal); I10 Essential (primary) hypertension; I25.10 Atherosclerotic heart disease of native coronary artery without angina pectoris; Z98.61 Coronary angioplasty status; Z20.822 Contact with and (suspected) exposure to COVID-19; Z79.899 Other long term (current) drug therapy; Z98.890 Other specified postprocedural states; Z82.49 Family history of ischemic heart disease and other diseases of the circulatory system
CPT/HCPCS: 96361; 96365; 96366; 99285; 36415; 93005; 93306; 93458; 80061; 80053; 80048; 83735; 84484; 85025; 85610; 85730; 87635; 71046; G0378 ×2; C9600; C1769; C1887; C1894; C1725 ×2; C1874; J2250; J2001; J3010; J1644 ×2; Q9950; Q9967